=== PATIENT | female | born 1995 | race Caucasian/White ===

== ENCOUNTER 2016-10-04 08:46 | Emergency (ER) | payer BC, OTHER ==
[~2016-10-04 08:46] MED LIST: AMOXICILLIN PO; BENTYL20 MG PO; CIPRO250 MG PO; CLEOCIN HCL300 M1 PO; DESYREL150 M1 PO; FLAGYL PO; FLAGYL250 M1 PO; FLEXERIL10 MG PO; FLONASE16 GM; LORCET 10-6501 EACH PO; MACROBID 100 M100 MG PO; MACROBID100 M1 PO; NORCO1 TAB 10/3 PO; OMEPRAZOLE40 MG PO; PAXIL PO; PHENERGAN25 MG PO; PRENATAL VITAMINS; PRENATAL1 TA1 PO; VOLTAREN50 MG PO; VOLTAREN75 MG PO; ZOFRANODT PO; ZOLOFT PO; [UNRECOGNIZED DRUG - OTHER] PO
[2016-10-04 09:50] LABS: ALBUMIN SERUM 4.2 g/dL (3.5-5.0); ALKALINE PHOSPHATASE 69 U/L (32-92); ALT (SGPT) 12 U/L (10-40); AST (SGOT) 21 U/L (10-42); BILIRUBIN, DIRECT 0.1 mg/dL (0.0-0.2); BILIRUBIN,INDIRECT 0.5 mg/dL (0.0-0.9); BILIRUBIN,TOTAL 0.6 mg/dL (0.2-2.0); BLOOD UREA NITROGEN 7 mg/dL (9-23); CALCIUM SERUM 9.3 mg/dL (8.4-10.2); CARBON DIOXIDE 20 mmol/L (22-31); CHLORIDE 100 mmol/L (100-111); CREATININE SERUM 0.7 mg/dL (0.6-1.4); GLUCOSE FASTING 74 mg/dL (70-110); POTASSIUM 3.6 mmol/L (3.5-5.1); PROTEIN TOTAL SERUM 7.7 g/dL (6.0-8.3); SALICYLATE <4.0 mg/dL; SODIUM 136 mmol/L (135-145)
[2016-10-04 10:14] LABS: ACETAMINOPHEN <10 ug/mL; ALCOHOL BLOOD <5 mg/dL (0)
[2016-10-04 14:42] LABS: AMPHETAMINE POS (NEG); BARBITURATES NEG (NEG); BENZODIAZEPINES NEG (NEG); COCAINE NEG (NEG); MARIJUANA POS (NEG); OPIATES POS (NEG); TRICYCLIC ANTIDEPRESSANTS NEG (NEG); U METHADONE NEG (NEG)
== END 2016-10-04 16:30 | disposition home or self-care (01) ==
LOC: SED 08:46 → CED 16:13 → SED 16:30
PROVIDERS: Emergency Medicine
DX: T40.1X1A Poisoning by heroin, accidental (unintentional), initial encounter (principal); F17.200 Nicotine dependence, unspecified, uncomplicated; Z88.2 Allergy status to sulfonamides
CPT/HCPCS: 80048; 80076; 80307; 84703; 96361; 96374; 99284; G0480; J2060

== ENCOUNTER 2016-10-06 23:25 | Emergency (ER) | payer BC, OTHER ==
[2016-10-07 04:51] LABS: URINE SOURCE CLEAN CATCH
[2016-10-07 05:07] LABS: URINE APPEARANCE CLOUDY; URINE BILIRUBIN NEG (NEG); URINE BLOOD TRACE (NEG); URINE COLOR DK YELLOW; URINE GLUCOSE NEG (NEG); URINE KETONE TRACE (NEG); URINE LEUKOCYTE ESTERASE 3+ (NEG); URINE NITRATE NEG (NEG); URINE PH 6.5 (5-8); URINE PROTEIN TRACE (NEG); URINE SPECIFIC GRAVITY 1.027 (1.003-1.035)
[2016-10-07 05:10] LABS: CULTURE INDICATED? YES; URINE BACTERIA AUWI 2+ (NEGATIVE); URINE SQUAMOUS EPITHELIAL CELL MOD /[HPF]; UWBCS1 AUWI 100-200 (0-5)
[2016-10-07 05:24] LABS: BASOPHIL# 0.1 X10e3 (0-0.3); BASOPHIL% 0.4 % (0-2.5); DIFF IND YES; EOSINOPHIL# 0.2 X10e3 (0-0.7); HEMATOCRIT 46.6 % (35.0-45.0); HEMOGLOBIN 15.5 gm/dL (12.0-16.0); LYMPHOCYTE# 1.6 X10e3 (1.0-3.5); LYMPHOCYTE% 9.9 % (17.0-45.0); MEAN CELL VOLUME 88.1 FL (83-96); MEAN CORPUSCULAR HEMOGLOBIN 29.3 PG (28-34); MEAN CORPUSCULAR HGB CONC 33.3 g/dL (30-36); MEAN PLATELET VOLUME 7.8 FL (6.5-11.5); MONOCYTE# 0.7 X10e3 (0-1.0); MONOCYTE% 4.1 % (3.0-12.0); NEUTROPHIL# 13.6 X10e3 (1.5-7.1); NEUTROPHIL% 84.6 % (40-75); PLATELET COUNT 342 X10e3 (140-420); RED BLOOD COUNT 5.29 X10e (3.90-5.30); RED CELL DISTRIBUTION WIDTH 13.8 % (11.0-15.5); WHITE BLOOD COUNT 16.1 X10e3 (4.0-10.5)
[2016-10-07 05:58] LABS: ALBUMIN SERUM 4.1 g/dL (3.5-5.0); BILIRUBIN, DIRECT 0.1 mg/dL (0.0-0.2); BILIRUBIN,INDIRECT 0.9 mg/dL (0.0-0.9); BUN/CREATININE RATIO 18.33; CALCIUM SERUM 9.6 mg/dL (8.4-10.2); CREATININE SERUM 0.6 mg/dL (0.6-1.4); GLOM FILT RATE Estimated 129.4 mL/min (>60); POTASSIUM 3.9 mmol/L (3.5-5.1); PROTEIN TOTAL SERUM 8.2 g/dL (6.0-8.3)
[2016-10-07 06:20] LABS: PLATELET ESTIMATE NORMAL (NORMAL)
== END 2016-10-07 08:30 ==
LOC: CED 23:25 → CFTX 23:55
PROVIDERS: Emergency Medicine
DX: F11.10 Opioid abuse, uncomplicated (principal); R45.851 Suicidal ideations; F41.9 Anxiety disorder, unspecified; Z88.2 Allergy status to sulfonamides
CPT/HCPCS: 36415; 80048; 80076; 81003; 84703; 85025; 87086; 87088; 87186; 99284; 99285; J0696; J2550

== ENCOUNTER 2016-10-07 03:00 | Inpatient (IN) | payer BC, OTHER ==
--- NOTE | ~2016-10-07 | DS ---
Unit #: [id number] #: [id number] Patient: JULIUS PEREZ [id number] [facility] [address] [place] [address] [id number] MR#: [id number] NAME: JULIUS PEREZ ROOM: [facility] Age: 20 Sex: F Admission Date: 10/07/2016 : 1995 Discharge Date: 10/10/2016 Attending Physician: Jenny Javier M.D. Primary Care Physician: Nino Tracy M.D. DISCHARGE SUMMARY IDENTIFYING DATA Ms. Perez is a 20-year-old, single, white female with history of mood disorder and substance abuse, who is known to us from previous encounter and was transferred to us on a 72-hours hold. DISCHARGE DIAGNOSES Psychiatric: Major depressive disorder, recurrent, moderate, without psychotic features; opioid dependence, moderate and acute withdrawals. Medical: None. Stressors: Moderate psychosocial stressors. HISTORY OF PRESENT ILLNESS Please see initial psychiatric evaluation for details. PAST PSYCHIATRIC HISTORY Please see initial psychiatric evaluation for details. PAST MEDICAL HISTORY Please see initial psychiatric evaluation for details. HOSPITAL COURSE The patient was [facility] and was oriented to the hospital environment. Routine p.r.n. medications were initiated, and she was started back on her home medications. Detox protocol was initiated and she was maintained on 72-hours hold, however, as soon as 72-hours hold , the patient refused to stay in the treatment any longer and was denying any suicidal ideations, intent, or plan and was not meeting criteria for involuntary psychiatric hospitalization and as such, it was decided that she will be discharged home and will continue treatment on an outpatient basis. DISCHARGE CONDITION Stable. PROGNOSIS Guarded. Dictated by... Jenny Javier M.D. IAA/modl Unit #: [id number] #: [id number] Patient: JULIUS PEREZ TD: 10/21/2016 13:55 JOB #: [id number] DISCHARGE SUMMARY Page 1 of 1 X Jenny Javier MD X DISCHARGE SUMMARY
--- NOTE | ~2016-10-07 | PA ---
Unit #: [id number] #: [id number] Patient: JULIUS PEREZ [id number] [facility] [address] [place] [address] [id number] I MR#: [id number] NAME: JULIUS PEREZ ROOM: P186 Age: 20 Sex: F Admission Date: 10/07/2016 : 1995 Date of Assessment: Attending Physician: Jenny Javier M.D. Admitting Physician: Jenny Javier M.D. Primary Care Physician: Nino Tracy M.D. PSYCHIATRIC ASSESSMENT DATE OF SERVICE 10/07/2016. IDENTIFYING DATA Ms. Perez is a 20-year-old single white female, who is a resident of [place], [place], who was transferred to us from [facility] on a voluntary basis. CHIEF COMPLAINT "I've been using about 4 g of IV heroin daily." HISTORY OF PRESENT ILLNESS A 20-year-old white female, who took herself to [facility] and apparently asked her grandmother that she wants to detox off heroin. Upon presentation to the emergency room, she reports that she has been using about 4 g of IV heroin on a daily basis and that she recently overdosed on 10/05/2015 from heroin due to it being a year of father from overdosing and denies any current suicidal ideation, but [facility] record shows that the patient initially ingested an unknown amount of Voltaren and denied this stating that she was at [facility] about 3 years ago due to mental health issues. The patient's grandmother brought her to the ER, but was not present and clinician initially evaluated and nurse reported that the patient made suicidal statements according to grandmother such as not wanting to live anymore. She reports that she has been unemployed since 05/2015 and currently has been residing with her grandmother who also is getting for her 2 children. She lost her father on 10/05/2015 from a drug overdose and reports that she sell the drugs to financially support herself and reports history of hepatitis C and also mentions relationship with family is fair at this time, that her boyfriend is positive support system and he is also drug addict, but currently he is clean and sober and as such, recommendation for inpatient chemical dependence treatment was made and the patient was transferred to us. SUBSTANCE ABUSE HISTORY The patient reports history of alcohol, cannabis, cocaine, opioids, and amphetamine abuse in the past, currently opioids, particularly heroin has been her drug of choice. PAST PSYCHIATRIC HISTORY The patient has had history of inpatient chemical dependency treatment at [facility], at [facility], and [employer] [facility], and review of the medical records indicate currently she is not active in treatment Unit #: [id number] #: [id number] Patient: JUILUS PEREZ program, is not seeing a psychiatrist, and is not taking any psychotropic medications. PAST MEDICAL HISTORY Hepatitis C and endometriosis. ALLERGIES Sulfa drugs. PERSONAL AND SOCIAL HISTORY A 20-year-old white female, who reports that she is single, unemployed, and has been living with her grandmother and reports fairly decent social support system. MENTAL STATUS EXAMINATION Young white female who was casually dressed with fair personal hygiene, appears to be in no acute distress or discomfort. She was awake and alert on interaction with intact orientation to time, place, and person. Her mood was anxious and depressed with a congruent affect. Her speech was slow and goal directed. She denies any suicidal or homicidal ideations and also denies any auditory or visual hallucinations. Her insight and judgment remain significantly impaired. DIAGNOSTIC IMPRESSION Psychiatric: Major depressive disorder, recurrent, moderate, without psychotic features; opioid dependence, moderate and acute withdrawals. Medical: Endometriosis and hepatitis C. Stressors: Moderate psychosocial stressors. TREATMENT PLAN 1. The patient has presented with history of mood disorder and substance abuse and has been decompensating and will need inpatient hospitalization for safety and stabilization and as such, recommendation for inpatient level of care for safety and stabilization was made. 2. Supportive therapy was provided to the patient. ESTIMATED LENGTH OF STAY 5 to 7 days. ABILITY TO HELP SELF Limited. WILLINGNESS TO HELP SELF The patient appears to be willing to help self. STRENGTHS 1. Communicative. 2. Cooperative. PROBLEMS 1. Chronic dysphoric symptoms. 2. Chronic chemical dependency. 3. Poor social support system. DISCHARGE CRITERIA This will be contingent upon the patient's ability to go through detox without having any significant withdrawal symptoms as well as her ability to stay safe to herself, particularly after discharge from the hospital. Unit #: [id number] #: [id number] Patient: JULIUS PEREZ Dictated by... Bobbi Ybarra/tai TD: 10/08/2016 22:35 JOB #: [id number] PSYCHIATRIC ASSESSMENT Page 1 of 1 X Jenny Javier MD PSYCHIATRIC ASSESSMENT
--- NOTE | ~2016-10-07 | HP ---
Unit #: [id number] #: [id number] Patient: ENEDINA MANN [id number] [facility] [address] [place] [address] [id number] MR#: [id number] NAME: ENEDINA MANN ROOM: 86 Age: 20 Sex: F Admission Date: 10/07/2016 : 1995 Attending Physician: Jenny Javier M.D. Admitting Physician: Jenny Javier M.D. Primary Care Physician: Nino Tracy M.D. HISTORY AND PHYSICAL HISTORY OF PRESENT ILLNESS Enedina is a 20 year old female admitted to [facility] because of her drug use. She shoots heroin. PAST MEDICAL HISTORY 1. History of illicit substance abuse to include IV heroin. 2. Hepatitis C. PAST SURGICAL HISTORY Nothing reported. ALLERGIES Sulfa. SOCIAL HISTORY Smokes one pack per day. Drinks alcohol on occasion. Admits to a history of illicit substance abuse to include IV heroin. FAMILY HISTORY Medically noncontributory. REVIEW OF SYSTEMS CONSTITUTIONAL: No fever or chills. HEENT: Denies any sore throat, ear pain or runny nose. CARDIOVASCULAR: Denies chest pain, irregular heart rhythm or palpitations. CHEST: Denies shortness of breath or cough. No hemoptysis. GASTROINTESTINAL: Denies nausea, vomiting, diarrhea or chronic constipation. ENDOCRINE: Denies history of increased thirst or urination. No recent significant weight loss or gain. GENITOURINARY: Denies dysuria, frequency, or hematuria. SKIN: Denies any rashes. HEMATOLOGIC: Denies history of increased bleeding or bruising. MUSCULOSKELETAL: Denies any hot, swollen joints. No generalized muscle pain. NEUROLOGIC: Denies problems with vision or speech. No frequent, severe headaches. No numbness, tingling or weakness in any extremities. Denies loss of bladder or bowel control. CURRENT MEDICATIONS Detox protocol. PHYSICAL EXAMINATION GENERAL: Alert, well nourished. No apparent distress. Unit #: [id number] #: [id number] Patient: ENEDINA MANN VITAL SIGNS: Blood pressure 110/74, heart rate 80, respirations 16, and temperature 98.6. WEIGHT: 130. HEIGHT: 5 feet 2 inches. SKIN: Warm and dry without rash or lesion. HEENT: Normocephalic. TMs not viewed. Oral and nasal passages clear. Conjunctivae clear. PERRLA. EOMs intact. NECK: Supple without lymphadenopathy or thyromegaly. HEART: Regular rate and rhythm without murmur. LUNGS: Clear. ABDOMEN: Soft, nontender. : Not done. EXTREMITIES: No evidence of cyanosis, clubbing or edema. Moves all without focal deficit. NEUROLOGICAL: Grossly within normal limits. Cranial Nerves: II: Visual hernandez are intact. III, IV AND : Extraocular movements are intact. Pupils are equal, round and reactive to light. V: Facial sensation is grossly normal. VII: Facial movements and expression are normal. VIII: Auditory acuity grossly intact. IX, X: Uvula is midline. Phonation is normal. XI: Patient shrugs shoulders and turns head normally. XII: Tongue protrudes in the midline. Sensory and Motor Function: Sensory and motor sensation is grossly normal. Motor: moves all extremities well. Coordination: Gait is normal. Deep Tendon Reflexes: Intact. IMPRESSION Psychiatric admission. RECOMMENDATIONS PSYCHIATRIC: Per psychiatrist. MEDICAL: I see no contraindication to participate in this facility's activities. MEDICAL PROGNOSIS Good. MEDICAL CONDITION Stable. Dictated by... Mirna Parker P.A.-C. for Bobbi Garcia/subha TD: 10/08/2016 10:48 JOB #: [id number] Unit #: [id number] #: [id number] Patient: ENEDINA MANN HISTORY AND PHYSICAL Page 1 of 1 X Mirna Parker HISTORY AND PHYSICAL
--- NOTE | ~2016-10-07 | PN ---
Unit #: [id number] #: [id number] Patient: JULIUS PEREZ [id number] [facility] [address] [place] [address] [id number] I MR#: [id number] NAME: JULIUS PEREZ ROOM: [facility] Age: 20 Sex: F Admission Date: 10/07/2016 : 1995 Attending Physician: Jenny Javier M.D. Admitting Physician: Jenny Javier M.D. Primary Care Physician: Bobbi Garcia PROGRESS NOTES DATE 10/08/2016 DISCUSSION Ms. Perez is a 20-year-old white female who was seen today and chart was reviewed and case was discussed with the staff. She was seen to be anxious, withdrawn in acute distress or discomfort as she was laying in her bed and reports not feeling good and going through acute detox. Meanwhile, she has been cooperative with treatment recommendations as she has been taking the medications and tolerating them fairly well with no reported side effects. MENTAL STATUS EXAMINATION Young white female who was casually dressed with fair personal hygiene, appears to be in no acute distress or discomfort. She was awake and alert on interaction with intact orientation. Her mood was anxious with congruent affect. She denies any suicidal or homicidal ideations. Her insight and judgement remains slightly impaired. TREATMENT PLAN 1. We will continue her on her current medications and treatment protocol. We will monitor her response to the medications and make further adjustments as needed. 2. We will continue to follow up. Dictated by... Bobbi Ybarra/mi TD: 10/09/2016 02:38 JOB #: [id number] Unit #: [id number] #: [id number] Patient: JULIUS PEREZ PROGRESS NOTES Page 1 of 1 X Jenny Javier MD PROGRESS NOTE
--- NOTE | ~2016-10-07 | PN ---
Unit #: [id number] #: [id number] Patient: JULIUS PEREZ [id number] [facility] [address] [place] [address] [id number] I MR#: [id number] NAME: JULIUS PEREZ ROOM: [facility] Age: 20 Sex: F Admission Date: 10/07/2016 : 1995 Attending Physician: Jenny Javier M.D. Admitting Physician: Jenny Javier M.D. Primary Care Physician: Bobbi Garcia PROGRESS NOTES DATE 10/09/2016 DISCUSSION Ms. Perez is a 20-year-old white female with substance abuse and mood disorder who was seen today and chart was reviewed and case was discussed with the staff. She reports she was laying in her bed was anxious, withdrawn, unkempt, disheveled, disorganized and unable to make eye contact or carry on much conversation. Staff reports the patient has been very isolative and has been exhibiting significant depressive symptoms. Meanwhile, she has been taking medications and has been tolerating them fairly well with no reported side effects. MENTAL STATUS EXAMINATION Young white female who was casually dressed with marginal personal hygiene, appears to be in slight distress or discomfort. She was awake and alert with impaired attention and concentration. Her mood was anxious and depressed with a congruent affect. Her speech is slow and goal-directed. She reports having suicidal or homicidal ideations. Also, denies any auditory or visual hallucinations. Her insight and judgement remains slightly impaired. TREATMENT PLAN 1. We will continue her on her current medications and treatment protocol. We will monitor her response to the medication and make further adjustments as needed. 2. We will continue to follow up. Dictated by... Bobbi Ybarra/mi TD: 10/10/2016 00:09 JOB #: [id number] Unit #: [id number] #: [id number] Patient: JULIUS PEREZ PROGRESS NOTES Page 1 of 1 X Jenny Javier MD X PROGRESS NOTE
[2016-10-08 12:30] LABS: BASOPHIL# 0.1 X10e3 (0-0.3); BASOPHIL% 0.5 % (0-2.5); EOSINOPHIL# 0.2 X10e3 (0-0.7); EOSINOPHIL% 1.4 % (0.0-7.0); HEMATOCRIT 42.5 % (35.0-45.0); LYMPHOCYTE# 1.8 X10e3 (1.0-3.5); LYMPHOCYTE% 13.1 % (17.0-45.0); MEAN CELL VOLUME 88.5 FL (83-96); MEAN CORPUSCULAR HEMOGLOBIN 29.1 PG (28-34); MEAN CORPUSCULAR HGB CONC 32.8 g/dL (30-36); MEAN PLATELET VOLUME 8.3 FL (6.5-11.5); MONOCYTE# 0.5 X10e3 (0-1.0); MONOCYTE% 3.6 % (3.0-12.0); NEUTROPHIL# 11.1 X10e3 (1.5-7.1); NEUTROPHIL% 81.4 % (40-75); PLATELET COUNT 297 X10e3 (140-420); RED CELL DISTRIBUTION WIDTH 14.1 % (11.0-15.5); WHITE BLOOD COUNT 13.6 X10e3 (4.0-10.5)
[2016-10-08 12:37] LABS: DIFF IND NO
[2016-10-08 12:49] LABS: ALBUMIN SERUM 3.1 g/dL (3.5-5.0); BILIRUBIN,TOTAL 0.7 mg/dL (0.2-2.0); BUN/CREATININE RATIO 12.85; CREATININE SERUM 0.7 mg/dL (0.6-1.4); POTASSIUM 3.9 mmol/L (3.5-5.1); PROTEIN TOTAL SERUM 6.2 g/dL (6.0-8.3)
[2016-10-09 12:38] LABS: URINE APPEARANCE CLEAR; URINE BILIRUBIN NEG (NEG); URINE BLOOD NEG (NEG); URINE COLOR YELLOW; URINE GLUCOSE NEG (NEG); URINE KETONE NEG (NEG); URINE LEUKOCYTE ESTERASE 1+ (NEG); URINE NITRATE NEG (NEG); URINE PH 6.5 (5-8); URINE PROTEIN NEG (NEG); URINE SPECIFIC GRAVITY 1.006 (1.003-1.035); URINE UROBILINOGEN 0.2 MG/DL (NEG)
[2016-10-09 12:41] LABS: URBCS1 AUWI 0-2 /[HPF] (0-2); URINE BACTERIA AUWI NEG (NEGATIVE); URINE SQUAMOUS EPITHELIAL CELL NONE SEEN /[HPF]
[2016-10-09 13:17] LABS: AMPHETAMINE POS (NEG); BARBITURATES NEG (NEG); BENZODIAZEPINES NEG (NEG); COCAINE NEG (NEG); MARIJUANA POS (NEG); OPIATES NEG (NEG); TRICYCLIC ANTIDEPRESSANTS NEG (NEG); U METHADONE NEG (NEG)
[2016-10-11 22:42] LABS: CHLAMYDIA TRACH Detected (Not Detected); N GONOR Not Detected (Not Detected)
[2016-10-12 22:42] LABS: HA AB IGM (HEPPAN) Nonreactive (()); HB CORE AB IGM (HEPPAN) Nonreactive (Nonreactive); HB S AG (HEPPAN) Nonreactive (Nonreactive); HEP C AB (HEPPAN) Reactive (Nonreactive); HEP C AB SIGNAL TO CUTOFF 9.44 ratio (<1.00)
== END 2016-10-10 10:52 | disposition home or self-care (01) | DRG 885 ==
LOC: P2L 09:21 → P1E 09:21
PROVIDERS: Psychiatry & Neurology Psychiatry
PROC: HZ2ZZZZ Detoxification Services for Substance Abuse Treatment (ICD-10-PCS; principal; 2016-10-07)
DX: F33.1 Major depressive disorder, recurrent, moderate (principal); F11.23 Opioid dependence with withdrawal; N80.9 Endometriosis, unspecified; B19.20 Unspecified viral hepatitis C without hepatic coma; Z91.5 Personal history of self-harm; Z81.8 Family history of other mental and behavioral disorders; Z88.2 Allergy status to sulfonamides; F17.210 Nicotine dependence, cigarettes, uncomplicated
CPT/HCPCS: 80053; 80074; 80307; 81003; 84703; 85025; 86592; 87491; 87522; 87591